=== PATIENT | male | born 1980 | race Caucasian/White ===

== ENCOUNTER 2018-01-19 21:41 | Inpatient (IN) | payer OTHER, MEDICAID ==
[~2018-01-19] VITALS: Ht 180.3 cm; Wt 56.5 kg
[2018-01-19] MEDS ORDERED: ARIP10TA8 PO (22:17)
[2018-01-19 22:31] LABS: BASOPHILS % (AUTO) 0.7 % (0.0-2.0); EOSINOPHILS % (AUTO) 1.2 % (1.0-6.0); HEMATOCRIT 40.5 % (41-53); HEMOGLOBIN 13.7 g/dL (13.5-17.5); LYMPHOCYTES % (AUTO) 24.6 % (22.0-44.0); MEAN CORPUSCULAR HEMOGLOBIN 31.7 pg (26.0-34.0); MEAN CORPUSCULAR HGB CONC 33.8 G/dL (31.0-37.0); MEAN CORPUSCULAR VOLUME 94 fL (80-100); MONOCYTES % (AUTO) 12.6 % (2.0-9.0); NEUTROPHILS # (AUTO) 4.9 K/uL (1.8-7.7); NEUTROPHILS % (AUTO) 60.9 % (40.0-70.0); PLATELET COUNT (AUTO) 242 K/uL (150-450); RED BLOOD CELL COUNT(AUTO) 4.31 MIL/uL (4.50-5.90); RED CELL DISTRIBUTION WIDTH 13.8 % (11.5-14.5)
[2018-01-19 22:41] LABS: ANION GAP 6 mmol/L (8-16); CALCIUM, TOTAL 9.4 mg/dL (8.8-10.5); CARBON DIOXIDE 32 mmol/L (22-29); CHLORIDE 102 mmol/L (98-107); CREATININE 0.95 mg/dL (0.60-1.30); GLOMERULAR FILTR. RATE CALC > 60 mL/min (>60); GLUCOSE,RANDOM 76 mg/dL (70-110); POTASSIUM 4.4 mmol/L (3.5-5.1); SODIUM SERUM 140 mmol/L (136-145); UREA NITROGEN, BLOOD 19 mg/dL (7-18)
[2018-01-19 22:44] LABS: ALBUMIN 4.1 g/dL (3.4-5.0)
[2018-01-19 23:02] LABS: ALANINE AMINOTRANSFERASE 35 U/L (12-78); ALKALINE PHOSPHATASE 93 U/L (46-116); ASPARTATE AMINOTRANSFERASE 49 U/L (15-37); BILIRUBIN,TOTAL 0.7 mg/dL (0.1-1.0); TOTAL PROTEIN, SERUM 7.5 g/dL (6.4-8.2)
[2018-01-19] MEDS ORDERED: HALOPERIDOL 5 MG TABLET PO PRN (23:15)
[2018-01-19 23:32] LABS: HEMOGLOBIN A1C 5.4 % (4.5-6.2)
[2018-01-19 23:42] LABS: CHOL/HDL RATIO 2.6 (4.2-7.3); CHOLESTEROL 153 mg/dL (131-200); FREE T4 (FREE THYROXINE) 1.04 ng/dL (0.76-1.46); HDL CHOLESTEROL 60 mg/dL (40-60); LDL CHOL (CALC.) 82 mg/dL (0-130); THYROID STIMULATING HORMONE 2.26 uIU/mL (0.36-3.74); TRIGLYCERIDES 53 mg/dL (15-150)
[2018-01-20 01:09] VITALS: BP 129/74
[2018-01-20] MEDS: LORazepam 2 MG TABLET PO PRN (01:58)
[2018-01-20] MEDS: ZOLPIDEM TARTRATE 10 MG TABLET PO PRN (01:59)
[2018-01-20 08:07] VITALS: BP 122/73
[2018-01-20] MEDS: ARIPiprazole 15 MG TABLET PO SCH (09:24)
[2018-01-20] MEDS ORDERED: ONDANSETRON HCL 4 MG TABLET PO PRN (14:30)
[2018-01-20] MEDS ORDERED: ALBUTEROL SULFATE HFA 90 MCG/PUFF 8 GM INHALER IH PRN (14:30)
[2018-01-20] MEDS ORDERED: PETROLATUM,WHITE 71 GM JELLY TP PRN (14:30)
[2018-01-20] MEDS ORDERED: MAGNESIUM HYDROXIDE SUSPENSION 30 ML UDCUP PO PRN (14:30)
[2018-01-20] MEDS ORDERED: MAG HYDROX/AL HYDROX/SIMETH ES 30 ML SUSPENSION UDCUP PO PRN (14:30)
[2018-01-20] MEDS ORDERED: IBUPROFEN 600 MG TABLET PO PRN (14:30)
[2018-01-20] MEDS ORDERED: BACITRACIN 28.4 GM OINTMENT TP PRN (14:30)
[2018-01-20] MEDS ORDERED: ACETAMINOPHEN 325 MG TABLET PO PRN (14:30)
[2018-01-20] MEDS ORDERED: LOPERAMIDE HCL 2 MG CAPSULE PO PRN (14:30)
[2018-01-20] MEDS ORDERED: CloNIDine HCL 0.1 MG TABLET PO PRN (14:30)
[2018-01-20] MEDS ORDERED: BENZOCAINE/MENTHOL LOZENGE MM PRN (14:30)
[2018-01-20 16:24] VITALS: BP 110/67
[2018-01-21 05:56] VITALS: BP 128/80
[2018-01-21 08:14] VITALS: BP 118/65
[2018-01-21] MEDS: ARIPiprazole 15 MG TABLET PO SCH (08:22)
[2018-01-21 16:05] VITALS: BP 120/78
[2018-01-21] MEDS: LORazepam 2 MG TABLET PO PRN (18:47)
[2018-01-22 06:41] VITALS: BP 134/88
[2018-01-22] MEDS: ARIPiprazole 15 MG TABLET PO SCH (08:00)
[2018-01-22 08:16] VITALS: BP 112/66
[2018-01-22 16:05] VITALS: BP 111/69
[2018-01-22] MEDS: LORazepam 2 MG TABLET PO PRN (20:48)
[2018-01-22] MEDS: ZOLPIDEM TARTRATE 10 MG TABLET PO PRN (20:48)
[2018-01-23 06:39] VITALS: BP 104/78
[2018-01-23 08:04] VITALS: BP 112/71
[2018-01-23] MEDS: ARIPiprazole 15 MG TABLET PO SCH (08:37)
[2018-01-23] MEDS ORDERED: ARIP15TA2 PO (14:26)
== END 2018-01-23 15:54 | disposition home or self-care (01) | DRG 885 ==
LOC: EMS 21:43 → B3A 01-20 00:28
DX: F20.0 Paranoid schizophrenia (principal); D64.9 Anemia, unspecified; F10.10 Alcohol abuse, uncomplicated; F12.20 Cannabis dependence, uncomplicated; G47.00 Insomnia, unspecified; Z79.899 Other long term (current) drug therapy; Z71.51 Drug abuse counseling and surveillance of drug abuser; Z71.41 Alcohol abuse counseling and surveillance of alcoholic
CPT/HCPCS: 83036; 84439; 84443; 99285; G0480

== ENCOUNTER 2018-08-25 13:25 | Emergency (ER) | payer OTHER ==
[~2018-08-25] VITALS: Ht 180.3 cm; Wt 75.0 kg
[~2018-08-25 13:25] MED LIST: ARIP10TA8 PO; ARIP15TA2 PO
[2018-08-25 16:10] LABS: BASOPHILS % (AUTO) 0.6 % (0.0-2.0); EOSINOPHILS % (AUTO) 1.1 % (1.0-6.0); HEMATOCRIT 37.9 % (41-53); HEMOGLOBIN 12.7 g/dL (13.5-17.5); LYMPHOCYTES # (AUTO) 1.6 K/uL (1.0-4.8); LYMPHOCYTES % (AUTO) 21.9 % (22.0-44.0); MEAN CORPUSCULAR HGB CONC 33.5 G/dL (31.0-37.0); MEAN CORPUSCULAR VOLUME 96 fL (80-100); MONOCYTES # (AUTO) 0.6 K/uL (0.1-1.0); MONOCYTES % (AUTO) 8.1 % (2.0-9.0); NEUTROPHILS % (AUTO) 68.3 % (40.0-70.0); PLATELET COUNT (AUTO) 277 K/uL (150-450); RED BLOOD CELL COUNT(AUTO) 3.96 MIL/uL (4.50-5.90); RED CELL DISTRIBUTION WIDTH 13.4 % (11.5-14.5)
[2018-08-25 16:21] LABS: ANION GAP 5 mmol/L (8-16); CALCIUM, TOTAL 8.7 mg/dL (8.8-10.5); CARBON DIOXIDE 30 mmol/L (22-29); CHLORIDE 105 mmol/L (98-107); CREATININE 0.67 mg/dL (0.60-1.30); GLOMERULAR FILTR. RATE CALC > 60 mL/min (>60); GLUCOSE,RANDOM 95 mg/dL (70-110); POTASSIUM 3.9 mmol/L (3.5-5.1); SODIUM SERUM 140 mmol/L (136-145); UREA NITROGEN, BLOOD 16 mg/dL (7-18)
[2018-08-25 16:26] LABS: ALANINE AMINOTRANSFERASE 17 U/L (12-78); ALBUMIN 3.4 g/dL (3.4-5.0); ALKALINE PHOSPHATASE 81 U/L (46-116); ASPARTATE AMINOTRANSFERASE 20 U/L (15-37); BILIRUBIN,TOTAL 0.2 mg/dL (0.1-1.0); TOTAL PROTEIN, SERUM 6.2 g/dL (6.4-8.2)
[2018-08-25 17:23] VITALS: BP 122/84
== END 2018-08-25 17:23 | disposition home or self-care (01) ==
LOC: EMS 13:26
DX: F20.0 Paranoid schizophrenia (principal); F12.90 Cannabis use, unspecified, uncomplicated
CPT/HCPCS: 36415; 80053; 85025; 99285; G0480